=== PATIENT | female | born 1960 | race American Indian/Alaskan Native ===

== ENCOUNTER 2020-08-14 15:19 | Emergency (ER) | payer OTHER | END 2020-08-14 16:12 | LOC: ED 15:19 | DX: J02.9 Acute pharyngitis, unspecified (principal); Z53.21 Procedure and treatment not carried out due to patient leaving prior to being seen by health care provider ==

== ENCOUNTER 2021-02-24 08:50 | Emergency (ER) | payer OTHER ==
[2021-02-24] MEDS ORDERED: cloNIDine 0.2 MG TAB PO ONE (11:16)
[2021-02-24 11:21] VITALS: BP 207/125
== END 2021-02-24 11:30 | disposition left against medical advice (07) ==
LOC: ED 08:50
DX: J02.9 Acute pharyngitis, unspecified (principal); Z53.21 Procedure and treatment not carried out due to patient leaving prior to being seen by health care provider
CPT/HCPCS: 99282